=== PATIENT | male | born 1985 | race African-American/Black ===

== ENCOUNTER 2022-09-26 20:42 | Emergency (ER) | payer MEDICAID ==
[~2022-09-26] VITALS: Ht 175.3 cm; Wt 72.0 kg
[2022-09-26 20:44] VITALS: BP 130/79
[2022-09-26] MEDS ORDERED: ALBUTEROL (0.083%) 2.5MG/3ML NEB HHN STA (22:11)
[2022-09-26] MEDS ORDERED: FLUT16SP15 BOTHNSTRLS (23:11)
[2022-09-26] MEDS ORDERED: TOPUD PO (23:11)
== END 2022-09-26 23:22 | disposition home or self-care (01) ==
LOC: ER 21:30
DX: B34.9 Viral infection, unspecified (principal); Z20.822 Contact with and (suspected) exposure to COVID-19
CPT/HCPCS: 71045; 87426; 87804; 94640; 99284; C9803; Z7610